=== PATIENT | male | born 1980 | race Caucasian/White ===

== ENCOUNTER → 2020-02-01 | Outpatient (CLI) | payer OTHER | END | disposition home or self-care (01) | LOC: CVU 10:52 | PROVIDERS: ATTEND Internal Medicine Cardiovascular Disease | DX: I11.9 Hypertensive heart disease without heart failure (principal) | CPT/HCPCS: C8929; Q9957 ==

== ENCOUNTER 2020-04-29 05:33 | Emergency (ER) | payer OTHER ==
[~2020-04-29] VITALS: Ht 180.3 cm; Wt 162.8 kg
[2020-04-29] MEDS ORDERED: LISI-170 PO (05:58)
--- NOTE | 2020-04-29 05:58 | NUR ---
PT REPORTS COMING INTO ED TODAY DUE TO "FEELING OFF THE PAST FEW DAYS". PT STATES HE HAS HAD A STOMACH ACHE ON AND OFF, DENIES N/V/D. PT ALSO REPORTS FEELING SOME "WEIRD THINGS" IN HIS CHEST, HX WPW. PT STATES HE FEELS FATIGUED AND THOUGH IT IS DIFFICULT TO CATCH HIS BREATH. PT STATES HE IS HAVING TO STOP AND FOCUS ON DEEP BREATHS TO REGAIN BREATH. PT PLACED ON SPO2/BP/ECG MONITORING. DOMONIQUE [place] AT FOR EVAL AND POC
[2020-04-29] MEDS ORDERED: METOPROLOL PO (06:02)
--- NOTE | 2020-04-29 06:06 | NUR ---
PT RESTING ON GURNEY, IN LOWEST POSITION, CALL LIGHT ON LAP, NAD, DENIES ADDITIONAL NEEDS AT THIS TIME, PROVIDED A WARM BLANKET FOR COMFORT, WCTM.
[2020-04-29 06:38] LABS: BASOPHILS % (AUTO) 1 % (0-1); EOSINOPHILS % (AUTO) 1 % (1-7); LYMPHOCYTES % (AUTO) 22 % (22-44); MEAN CORPUSCULAR HEMOGLOBIN 30.6 pg (27.5-34.5); MEAN CORPUSCULAR HGB CONC 33.6 g/dL (33.2-36.2); MEAN PLATELET VOLUME 8.8 fL (7.4-10.4); MONOCYTES % (AUTO) 8 % (2-9); NEUTROPHILS % (AUTO) 69 % (42-75); PLATELET COUNT 235 x10^3/uL (130-400); RED BLOOD COUNT 4.82 x10^6/uL (4.38-5.82); RED CELL DISTRIBUTION WIDTH 13.2 % (9.4-14.8)
[2020-04-29 06:45] LABS: MD NO
--- NOTE | 2020-04-29 06:46 | NUR ---
PT NAD, RESTING ON GURNEY, WAITING FOR LAB/RAD RESULTS AT THIS TIME, PT DENIES ADDITIONAL QUESTIONS OR NEEDS AT THIS TIME. VSS, WCTM.
[2020-04-29 06:48] LABS: ALANINE AMINOTRANSFERASE 20 U/L (12-78); ALBUMIN 3.5 g/dL (3.4-5.0); ANION GAP 7 mmol/L (5-15); CALCIUM 8.7 mg/dL (8.5-10.1); CHLORIDE 108 mmol/L (98-107); CREATININE 0.85 mg/dL (0.7-1.3)
[2020-04-29 06:52] LABS: ALKALINE PHOSPHATASE 62 U/L (45-117); BILIRUBIN,TOTAL 0.4 mg/dL (0.2-1.0); TOTAL PROTEIN 6.9 g/dL (6.4-8.2); TROPONIN I < 0.015 ng/mL (0.000-0.045)
--- NOTE | 2020-04-29 06:53 | NUR ---
BEDSIDE REPORT TO AMINAH RN, PT CARE TRANSFERRED AT THIS TIME.
[2020-04-29 08:16] VITALS: BP 134/68
--- NOTE | 2020-04-29 08:44 | NUR ---
Patient given discharge instructions and they have confirmed that they understand the instructions. Patient ambulatory with steady gait.
== END 2020-04-29 08:45 | disposition home or self-care (01) ==
LOC: ED 08:09
DX: R07.89 Other chest pain (principal); I51.7 Cardiomegaly; R06.02 Shortness of breath; R10.9 Unspecified abdominal pain
CPT/HCPCS: 36415; 71045; 80053; 83880; 84484; 85025; 85379; 93005; 99285